=== PATIENT | male | born 1990 | race Caucasian/White ===

== ENCOUNTER 2021-08-06 20:48 | Emergency (ER) | payer OTHER ==
[~2021-08-06] VITALS: Ht 188 cm; Wt 155.0 kg
[2021-08-06] MEDS ORDERED: VITAMIN D21250 MCG PO (21:01)
[2021-08-06] MEDS ORDERED: DESVENLAFAXINE25 MG PO (21:01)
== END 2021-08-06 21:52 | disposition home or self-care (01) ==
LOC: ED 20:48
DX: M54.50 Low back pain, unspecified (principal); G89.29 Other chronic pain; Z88.0 Allergy status to penicillin; Z79.899 Other long term (current) drug therapy